=== PATIENT | male | born 1985 | race Two or more races ===

== ENCOUNTER 2021-08-25 09:26 | Emergency (ER) | payer OTHER ==
[~2021-08-25] VITALS: Ht 177.8 cm; Wt 108.9 kg
[2021-08-25] MEDS ORDERED: ASPirin 81 mg TAB PO ONE (09:45)
[2021-08-25 10:26] LABS: Hemoglobin 15.3 g/dL (13.5-17.5); Red Cell Distribution Width 12.5 % (11.8-14.3)
[2021-08-25 10:32] LABS: Hematocrit 42.6 % (41.0-53.0); Mean Corpuscular Hemoglobin 32.2 pg (28.0-32.0); Mean Corpuscular Hgb Conc. 35.9 g/dL (32.0-36.0); Mean Corpuscular Volume 89.8 fL (80.0-100.0); Red Blood Cells 4.75 10^6/uL (4.5-5.90)
[2021-08-25 10:33] LABS: Band Neutrophils % (manual) 0; Basophils % (manual) 0 (0.0-2.0); Metamyelocytes % 0; Myelocytes % 0; Promyelocytes % 0; Reactive Lymphocytes 0
[2021-08-25 10:34] LABS: Blast Cells 0
[2021-08-25 10:42] LABS: INR 1.05 (0.9-1.15); Partial Thromboplastin Time 27.6 sec (23.6-33.0)
[2021-08-25 10:53] LABS: Albumin 3.8 g/dL (3.4-5.0); Calcium 8.3 mg/dL (8.5-10.1); Potassium 4.4 mmol/L (3.5-5.1)
[2021-08-25 10:59] LABS: BUN/Creatinine Ratio 12.9; Bilirubin, Total 0.4 mg/dL (0.2-1.0); Total Protein 7.2 g/dL (6.4-8.2)
[2021-08-25 11:33] LABS: Eosinophils % (manual) 2 (0-7); Lymphocytes % (manual) 34 (10.0-50.0); Monocytes % (manual) 13 (0-12)
[2021-08-25 14:45] VITALS: BP 129/81
== END 2021-08-25 15:45 | disposition home or self-care (01) ==
LOC: EDBD 09:26 → ER 09:26
DX: R07.89 Other chest pain (principal); I10 Essential (primary) hypertension
CPT/HCPCS: 36415; 71046; 80053; 84484; 85007; 85027; 85610; 85730; 93005; 99285; J7030